=== PATIENT | male | born 1975 | race Caucasian/White ===

== ENCOUNTER 2017-09-15 15:20 | Observation (INO) | payer BC ==
[~2017-09-15] VITALS: Ht 180.3 cm; Wt 95.7 kg
[2017-09-15 15:27] VITALS: BP 239/150
[2017-09-15 15:58] LABS: HEMOGLOBIN 17.3 gm/dL (14.0-18.0); MCH 31.1 pg (26.0-34.0); MCHC 35.4 g/dL (28.0-37.0); MCV 87.9 fL (80.0-100.0); MPV 8.6 fl. (7.2-11.1); NUCLEATED RBCS 0 /100WBC; PLATELET COUNT* 201 thou/uL (150-400); RBC 5.57 mil/uL (4.50-6.00); RDW-CV 13.2 % (10.5-14.5); WBC 12.9 thou/uL (4.0-11.0)
[2017-09-15 16:09] LABS: ANION GAP 5 mmol/L (7-16); BUN 12 mg/dL (7-18); CALCIUM 9.3 mg/dL (8.5-10.1); CHLORIDE 103 mmol/L (98-107); CO2 33 mmol/L (21-32); GLUCOSE 106 mg/dL (70-99); POTASSIUM 3.8 mmol/L (3.5-5.1); SODIUM 141 mmol/L (136-145)
[2017-09-15 16:14] LABS: ABSOLUTE EOSINOPHILS 0.1 thou/uL (0.0-0.7); ABSOLUTE LYMPHOCYTES 1.4 thou/uL (0.8-5.3); ABSOLUTE NEUTROPHILS 10.3 thou/uL (1.6-8.1); ATYPICAL LYMPHS 7 %; PLATELET ESTIMATE ADEQUATE
[2017-09-15 16:18] LABS: ALBUMIN 4.6 g/dL (3.4-5.0); ALKALINE PHOSPHATASE 49 U/L (46-116); NT-PRO BRAIN NAT PEPTIDE 71 pg/mL (<300); SGOT 20 U/L (15-37); SGPT 58 U/L (30-65); TOTAL BILIRUBIN 2.2 mg/dL (<0.1-1.0); TOTAL PROTEIN 7.7 g/dL (6.4-8.2); TROPONIN-I LEVEL <0.06 ng/mL (<0.06)
--- NOTE | 2017-09-15 17:20 | EKG ---
[place] [address] ELECTROCARDIOGRAM REPORT Name: TRACY GRACIA Room: [facility]#: [id number] Admission: 09/15/17 Attend Phys: Discharge: Date of : 77 Report #: [id number] THIS REPORT FOR: //name// [facility] ED Test Date: 2017-09-15 Test Time: 15:42:10 Pat Name: TRACY GRACIA Department: Room: Gender: Strip Cleaner: Cordell VILLA : 1975 Requested By: Alberto Schofield Order Number: [id number] MD: Isaías Billy Measurements Intervals [place] Rate: 79 P: 67 HI: 178 QRS: 86 QRSD: 86 T: 32 QT: 369 QTc: 424 Interpretive Statements Sinus rhythm Probable left atrial enlargement No previous ECG available for comparison Electronically Signed On 09-15-2017 17:19:55 [employer]PER[employer] by Isaías Billy [email or web address] <ELECTRONICALLY SIGNED> By: Isaías Billy MD, [facility] 09/15/17 1719 1542 1542 Isaías Billy MD, FACC /EPI
[2017-09-15 19:13] LABS: DIRECT BILIRUBIN 0.3 mg/dL (<0.1-0.3); TOTAL BILIRUBIN 2.1 mg/dL (<0.1-1.0)
[2017-09-15 21:06] LABS: URINE BILIRUBIN NEGATIVE (Negative); URINE BLOOD NEGATIVE (Negative); URINE CLARITY CLEAR; URINE COLOR YELLOW; URINE GLUCOSE-RANDOM NEGATIVE (Negative); URINE KETONES NEGATIVE (Negative); URINE LEUKOCYTES-REFLEX NEGATIVE (Negative); URINE NITRITE-REFLEX NEGATIVE (Negative); URINE PROTEIN TRACE (Negative); URINE UROBILINOGEN 0.2 E.U./dl (0.2-1.0)
[2017-09-15 21:15] LABS: AMP/METHAMP Negative (Negative); BARBITURATES Negative (Negative); BENZODIAZEPINES Negative (Negative); COCAINE Negative (Negative); METHADONE Negative (Negative); OPIATES POSITIVE (Negative); PCP Negative (Negative); THC Negative (Negative)
[2017-09-15 21:49] VITALS: BP 139/89
[2017-09-15 22:30] VITALS: BP 152/87
[2017-09-16] VITALS: BP 117/81
[2017-09-16 04:00] VITALS: BP 126/74
[2017-09-16 07:45] VITALS: BP 136/83
[2017-09-16] MEDS ORDERED: LISINOPRIL20 MG PO (09:36)
[2017-09-16 09:49] VITALS: BP 136/83
== END 2017-09-16 10:30 | disposition home or self-care (01) ==
LOC: M.ERS 15:20 → M.2W 18:45 → M.TBA-ER 18:45 → M.2W 22:21
PROVIDERS: Emergency Medicine; ADMIT Internal Medicine
DX: I16.1 Hypertensive emergency (principal); G43.819 Other migraine, intractable, without status migrainosus; D72.829 Elevated white blood cell count, unspecified; I10 Essential (primary) hypertension; E78.00 Pure hypercholesterolemia, unspecified

== ENCOUNTER → 2020-01-22 | Outpatient (CLI) | payer OTHER ==
[~2020-01-22] MED LIST: LISINOPRIL20 MG PO
== END ==
LOC: M.MRI 07:02
PROVIDERS: ATTEND Family Medicine
DX: N28.1 Cyst of kidney, acquired (principal); N28.89 Other specified disorders of kidney and ureter

== ENCOUNTER → 2020-02-25 | Outpatient (CLI) | payer OTHER | LOC: M.ULTRA 13:00 | PROVIDERS: ATTEND Family Medicine | DX: N28.1 Cyst of kidney, acquired (principal); N28.89 Other specified disorders of kidney and ureter ==